=== PATIENT | male | born 1965 | race Caucasian/White ===

== ENCOUNTER → 2016-12-05 | Outpatient (CLI) | payer OTHER ==
--- NOTE | 2016-12-05 16:50 | CT ---
EXAMINATION TYPE: CT lumbar spine wo con DATE OF EXAM: 12/05/2016 3:36 PM COMPARISON: 06/15/2016 HISTORY: Patient complains of continued lower back pain with pain and numbness posterior left thigh. Patient has a history of 3 prior lower back surgeries. CT DLP: 1179.4 mGycm CONTRAST: CT scan of the lumbar is performed without contrast TECHNIQUE: CT of the lumbar spine is performed on a spiral scan at 3 mm thick sections. Reconstructed images are performed in the coronal and sagittal planes. FINDINGS: T11-T12: No focal disc herniation or significant disc bulge is evident. No spinal canal stenosis or neural foraminal stenosis is present. T12-L1: No focal disc herniation or significant disc bulge is evident. No spinal canal stenosis or neural foraminal stenosis is present. L1-L2: No significant disc herniation is evident. No spinal canal stenosis is evident. There is a com pression deformity of L1 which was present previously L2-L3: There is a inferior L2 endplate spur with moderate anterior thecal sac compression. Laminectom y has been performed and no AP spinal canal stenosis is present. Beam hardening artifact from fixatio n devices is present at this level. Lateral canal narrowing from facet hypertrophy may be present to this level. L3-L4: Disc bulge is present with anterior thecal sac flattening. No AP spinal canal stenosis present . Neural foramen are patent. L4-L5: Mild disc bulging is anterior thecal sac flattening. No AP spinal canal stenosis or neural for aminal stenosis is present L5-S1: Be midline artifact limits evaluation to this level. Disc spacers present. IMPRESSION: Old compression deformity of L2. Postsurgical changes are present to the lumbar spine. 2. Disc bulging L3-4 and L4-5 with mild anterior thecal sac compression. 3. Posterior endplate spur at the inferior L2 endplate with moderate thecal sac compression. Laminect faye decompresses the canal and no spinal canal stenosis is present.
== END | disposition home or self-care (01) ==
LOC: RADCTMAIN 15:13
PROVIDERS: ATTEND Specialist
DX: Z09 Encounter for follow-up examination after completed treatment for conditions other than malignant neoplasm (principal); M51.26 Other intervertebral disc displacement, lumbar region; Z98.1 Arthrodesis status
CPT/HCPCS: 72131

== ENCOUNTER 2018-12-26 16:38 | Emergency (ER) | payer BC, OTHER ==
--- NOTE | 2018-12-26 16:54 | ED ---
Dizziness HPI - General Chief Complaint: Dizziness Stated Complaint: Dizziness, water retention Time Seen by Provider: 12/26/18 16:53 Source: patient, RN notes reviewed, old records reviewed Mode of arrival: ambulatory Limitations: no limitations - History of Present Illness Initial Comments: This is a 53-year-old male the ER for evaluation. Presents today for evaluation dizziness episode of dizziness were driving his car. No chest pain no shortness of breath currently. No current symptoms. No recent change in medications denies drug or alcohol. No headache chest pain shortness breath or abdominal pain. Patient does have recent history of calf injury and does have pain on his left leg which has been chronic and swelling his left leg which has been chronic for a few weeks now. Patient denies any other injury or trauma noted. Timing: sudden onset Description: sense of movement, lightheadedness History of Same: No History of Trauma: No Severity: mild Improves With: nothing Worsens With: movement Associated Symptoms: denies other symptoms - Related Data Home Medications Medication Instructions Recorded Confirmed Citalopram Hydrobromide [CeleXA] 20 mg PO DAILY 12/26/18 12/26/18 Gabapentin [Neurontin] 300 mg PO QAM 12/26/18 12/26/18 Gabapentin [Neurontin] 600 mg PO HS 12/26/18 12/26/18 HYDROcodone/APAP 5-325MG [Industry 1 tab PO TID PRN 12/26/18 12/26/18 5-325] Allergies Allergy/AdvReac Type Severity Reaction Status Date / Time No Known Allergies Allergy Verified 12/26/18 17:29 Review of Systems ROS Statement: Those systems with pertinent positive or pertinent negative responses have been documented in the HPI. ROS Other: All systems not noted in ROS Statement are negative. Past Medical History Additional Past Medical History / Comment(s): spinal injury -l2 History of Any Multi-Drug Resistant Organisms: None Reported Past Surgical History: Back Surgery, Cholecystectomy Past Psychological History: No Psychological Hx Reported Smoking Status: Never smoker Past Alcohol Use History: None Reported Past Drug Use History: Marijuana General Exam - General Exam Comments Initial Comments: Left lower extremity edema Limitations: no limitations General appearance: alert, in no apparent distress Head exam: Present: atraumatic, normocephalic, normal inspection Eye exam: Present: normal appearance, PERRL, EOMI. Absent: scleral icterus, conjunctival injection, periorbital swelling ENT exam: Present: normal exam, mucous membranes moist Neck exam: Present: normal inspection. Absent: tenderness, meningismus, lymphadenopathy Respiratory exam: Present: normal lung sounds bilaterally. Absent: respiratory distress, wheezes, rales, rhonchi, stridor Cardiovascular Exam: Present: regular rate, normal rhythm, normal heart sounds. Absent: systolic murmur, diastolic murmur, rubs, gallop, clicks GI/Abdominal exam: Present: soft, normal bowel sounds. Absent: distended, tenderness, guarding, rebound, rigid Extremities exam: Present: normal inspection, full ROM, normal capillary refill. Absent: tenderness, pedal edema, joint swelling, calf tenderness Back exam: Present: normal inspection Neurological exam: Present: alert, oriented X3, CN II-XII intact Psychiatric exam: Present: normal affect, normal mood Skin exam: Present: warm, dry, intact, normal color. Absent: rash Course Vital Signs 12/26/18 12/26/18 12/26/18 16:48 17:30 17:51 Temperature 98.1 F Pulse Rate 98 86 Respiratory 18 Rate Blood Pressure 195/121 152/92 152/92 O2 Sat by Pulse 97 Oximetry 12/26/18 12/26/18 12/26/18 18:00 18:30 18:51 Temperature Pulse Rate 85 85 81 Respiratory 18 17 16 Rate Blood Pressure 158/95 151/93 144/81 O2 Sat by Pulse 95 96 97 Oximetry 12/26/18 19:00 Temperature Pulse Rate 84 Respiratory 18 Rate Blood Pressure 144/86 O2 Sat by Pulse 96 Oximetry - Reevaluation(s) Reevaluation #1: 12/26/18 19:40 Medical record is reviewed Reevaluation #2: 12/26/18 19:40 Symptoms are resolved Medical Decision Making - Medical Decision Making 50 female the ER for evaluation. Patient presents today for evaluation regards to dizziness episode of dizziness while driving today. Patient became concerned and comes ER, no chest pain symptoms are normal. Patient has normal x -ray normal CT brain ultrasound left lower extremity is negative patient can be discharged home - Lab Data Result diagrams: 12/26/18 17:11 12/26/18 17:11 Lab Results 12/26/18 12/26/18 12/26/18 Range/Units 17:11 17:11 17:11 WBC 5.0 (3.8-10.6) k/uL RBC 5.20 (4.30-5.90) m/uL Hgb 16.1 (13.0-17.5) gm/dL Hct 46.8 (39.0-53.0) % MCV 90.0 (80.0-100.0) fL MCH 30.9 (25.0-35.0) pg MCHC 34.3 (31.0-37.0) g/dL RDW 12.8 (11.5-15.5) % Plt Count 300 (150-450) k/uL Neutrophils % 49 % Lymphocytes % 35 % Monocytes % 7 % Eosinophils % 6 % Basophils % 1 % Neutrophils # 2.4 (1.3-7.7) k/uL Lymphocytes # 1.8 (1.0-4.8) k/uL Monocytes # 0.4 (0-1.0) k/uL Eosinophils # 0.3 (0-0.7) k/uL Basophils # 0.1 (0-0.2) k/uL PT (9.0-12.0) sec INR (<1.2) APTT (22.0-30.0) sec Sodium 143 (137-145) mmol/L Potassium 3.9 (3.5-5.1) mmol/L Chloride 106 (98-107) mmol/L Carbon Dioxide 27 (22-30) mmol/L Anion Gap 10 mmol/L BUN 15 (9-20) mg/dL Creatinine 0.70 (0.66-1.25) mg/dL Est GFR (CKD-EPI)AfAm >90 (>60 ml/min/1.73 sqM) Est GFR (CKD-EPI)NonAf >90 (>60 ml/min/1.73 sqM) Glucose 102 H (74-99) mg/dL Calcium 9.6 (8.4-10.2) mg/dL Phosphorus 2.1 L (2.5-4.5) mg/dL Magnesium 2.0 (1.6-2.3) mg/dL Total Bilirubin 0.7 (0.2-1.3) mg/dL AST 28 (17-59) U/L ALT 44 (21-72) U/L Alkaline Phosphatase 90 (38-126) U/L Total Creatine Kinase 55 (55-170) U/L CK-MB (CK-2) 0.3 (0.0-2.4) ng/mL CK-MB (CK-2) Rel Index 0.5 Troponin I <0.012 (0.000-0.034) ng/mL NT-Pro-B Natriuret Pep pg/mL Total Protein 8.5 H (6.3-8.2) g/dL Albumin 5.0 (3.5-5.0) g/dL 12/26/18 12/26/18 Range/Units 17:11 17:11 WBC (3.8-10.6) k/uL RBC (4.30-5.90) m/uL Hgb (13.0-17.5) gm/dL Hct (39.0-53.0) % MCV (80.0-100.0) fL MCH (25.0-35.0) pg MCHC (31.0-37.0) g/dL RDW (11.5-15.5) % Plt Count (150-450) k/uL Neutrophils % % Lymphocytes % % Monocytes % % Eosinophils % % Basophils % % Neutrophils # (1.3-7.7) k/uL Lymphocytes # (1.0-4.8) k/uL Monocytes # (0-1.0) k/uL Eosinophils # (0-0.7) k/uL Basophils # (0-0.2) k/uL PT 10.1 (9.0-12.0) sec INR 0.9 (<1.2) APTT 24.9 (22.0-30.0) sec Sodium (137-145) mmol/L Potassium (3.5-5.1) mmol/L Chloride (98-107) mmol/L Carbon Dioxide (22-30) mmol/L Anion Gap mmol/L BUN (9-20) mg/dL Creatinine (0.66-1.25) mg/dL Est GFR (CKD-EPI)AfAm (>60 ml/min/1.73 sqM) Est GFR (CKD-EPI)NonAf (>60 ml/min/1.73 sqM) Glucose (74-99) mg/dL Calcium (8.4-10.2) mg/dL Phosphorus (2.5-4.5) mg/dL Magnesium (1.6-2.3) mg/dL Total Bilirubin (0.2-1.3) mg/dL AST (17-59) U/L ALT (21-72) U/L Alkaline Phosphatase (38-126) U/L Total Creatine Kinase (55-170) U/L CK-MB (CK-2) (0.0-2.4) ng/mL CK-MB (CK-2) Rel Index Troponin I (0.000-0.034) ng/mL NT-Pro-B Natriuret Pep 36 pg/mL Total Protein (6.3-8.2) g/dL Albumin (3.5-5.0) g/dL - Radiology Data Radiology results: report reviewed (CT brain negative chest x-ray negative ultrasound left lower extremity negative), image reviewed Disposition Clinical Impression: Dizziness, Leg edema, left Disposition: HOME SELF-CARE Condition: Good Instructions (If sedation given, give patient instructions): Dizziness (ED) Is patient prescribed a controlled substance at d/c from ED?: No Referrals: Blair Gomez DO [Primary Care Provider] - 1-2 days
[2018-12-26 17:24] LABS: Basophils # (A) 0.1 k/uL (0-0.2); Basophils % (A) 1 %; Eosinophils # (A) 0.3 k/uL (0-0.7); Eosinophils % (A) 6 %; HCT 46.8 % (39.0-53.0); HGB 16.1 gm/dL (13.0-17.5); Lymphocytes # (A) 1.8 k/uL (1.0-4.8); Lymphocytes % (A) 35 %; MCH 30.9 pg (25.0-35.0); MCHC 34.3 g/dL (31.0-37.0); Mean Platelet Volume 6.1; Monocytes # (A) 0.4 k/uL (0-1.0); Monocytes % (A) 7 %; Neutrophils # (A) 2.4 k/uL (1.3-7.7); Neutrophils % (A) 49 %; Platelet Count 300 k/uL (150-450); RDW 12.8 % (11.5-15.5)
[2018-12-26 17:31] LABS: INR 0.9 (<1.2); Partial Thromboplastin Time 24.9 sec (22.0-30.0); Prothrombin Time 10.1 sec (9.0-12.0)
[2018-12-26 17:33] LABS: ALT 44 U/L (21-72); AST 28 U/L (17-59); Alkaline Phosphatase 90 U/L (38-126); Anion Gap 10 mmol/L; Blood Urea Nitrogen 15 mg/dL (9-20); Calcium 9.6 mg/dL (8.4-10.2); Carbon Dioxide 27 mmol/L (22-30); Chloride 106 mmol/L (98-107); Glucose 102 mg/dL (74-99); Phosphorus 2.1 mg/dL (2.5-4.5); Potassium 3.9 mmol/L (3.5-5.1); Sodium 143 mmol/L (137-145); Total Bilirubin 0.7 mg/dL (0.2-1.3); Total Protein 8.5 g/dL (6.3-8.2)
[2018-12-26 17:35] LABS: Creatine Kinase 55 U/L (55-170)
--- NOTE | 2018-12-26 17:39 | XR ---
EXAMINATION TYPE: XR chest 2V DATE OF EXAM: 12/26/2018 COMPARISON: 03/23/2016 HISTORY: Weakness TECHNIQUE: Frontal and lateral views of the chest are obtained. FINDINGS: Heart and mediastinum are normal. Lungs are clear. Diaphragm is normal. Bony thorax is int act. There are chest leads. IMPRESSION: Normal chest. No change.
[2018-12-26] MEDS ORDERED: LABETALOL SYRINGE 5 MG/ML IVP STA (17:46)
[2018-12-26 17:48] LABS: Creatine Kinase MB 0.3 ng/mL (0.0-2.4); Troponin I <0.012 ng/mL (0.000-0.034)
--- NOTE | 2018-12-26 18:46 | CT ---
EXAMINATION TYPE: CT brain wo con DATE OF EXAM: 12/26/2018 COMPARISON: None HISTORY: Dizziness. CT DLP: 1142.4 mGycm Automated exposure control for dose reduction was used. FINDINGS: Ventricles of normal size. There is no mass effect nor midline shift. There is no sign of intracrania l hemorrhage. Calvarium is intact. IMPRESSION: NEGATIVE CT SCAN OF THE BRAIN.
--- NOTE | 2018-12-26 20:06 | US ---
EXAMINATION TYPE: US venous doppler duplex LE LT DATE OF EXAM: 12/26/2018 7:47 PM COMPARISON: NONE CLINICAL HISTORY: Pain. h/o left calf strain last week, swelling now, no h/o dvt SIDE PERFORMED: Left TECHNIQUE: The lower extremity deep venous system is examined utilizing real time linear array sonog giselle with graded compression, doppler sonography and color-flow sonography. VESSELS IMAGED: External Iliac Vein (EIV) Common Femoral Vein Deep Femoral Vein Greater Saphenous Vein * Femoral Vein Popliteal Vein Small Saphenous Vein * Proximal Calf Veins (* superficial vessels) Left Leg: Appears negative for DVT, mild complex fluid collection noted on medial calf at area of pa tient's injury 1 week prior IMPRESSION: No deep venous thrombosis in the left leg. Elongated complex fluid collection in the calf could be a chronic hematoma. This measures 6 mm in thickness.
[2018-12-26 20:31] VITALS: BP 136/86; PULSE 89; RESP 16; TEMP 98.2
== END 2018-12-26 20:31 | disposition home or self-care (01) ==
LOC: EC 16:38
DX: R42 Dizziness and giddiness (principal); R60.9 Edema, unspecified; Z79.899 Other long term (current) drug therapy
CPT/HCPCS: 36415; 70450; 71046; 80053; 82550; 82553; 83735; 83880; 84100; 84484; 85025; 85610; 85730; 93005; 96374; 99285